=== PATIENT | female | born 1965 | race Caucasian/White ===

== ENCOUNTER 2020-01-23 17:25 | Inpatient (IN) | payer MEDICARE, OTHER ==
[~2020-01-23] VITALS: Ht 162.6 cm; Wt 100.7 kg
[~2020-01-23 17:25] MED LIST: ASPI81TA31 PO; DICL100G16 TP; ERGO400T7 PO; FENO134C PO; FURO-152 PO; GABA-534 PO; LOSA100T31 PO; METF-440 PO; PANT40TA2 PO; POTA-10 PO
--- NOTE | 2020-01-23 17:46 | NUR ---
PT IS IN ROOM #2A. DR MOREAU EVALUATED THE PT.
[2020-01-23] MEDS ORDERED: METO-358 PO (17:58)
[2020-01-23] MEDS ORDERED: WARF1TAB2 PO (17:58)
[2020-01-23] MEDS ORDERED: AMLO-212 PO (17:58)
--- NOTE | 2020-01-23 18:03 | NUR ---
PT RESTING IN BED COMFORTABLY . NO S/S OF ACUTE DISTRESS AT THIS TIME.
[2020-01-23] MEDS ORDERED: GABA800T11 PO (18:26)
[2020-01-23] MEDS ORDERED: SITA100T PO (18:26)
[2020-01-23] MEDS ORDERED: LURA40TA PO (18:26)
[2020-01-23] MEDS ORDERED: GABA-536 PO (18:26)
[2020-01-23] MEDS ORDERED: LOSA100T3 PO (18:26)
[2020-01-23] MEDS ORDERED: BUPR150T10 PO (18:26)
[2020-01-23] MEDS ORDERED: ATOR40TA PO (18:26)
--- NOTE | 2020-01-23 18:55 | NUR ---
REPORT GIVEN TO DOG BOARDER RN.
--- NOTE | 2020-01-23 19:29 | NUR ---
Rigoberto catherine in ED - 01/24/20 at 0714 by MELBA DURING SHIFT CHANGE, PATIENT MANAGED TO ESCAPE OUT OF THE EMERGENCY ROOM AND WAS LAST NOTED WALKING DOWN [facility] TOWARDS [facility], NO 1:1 SITTER NOTED AT TIME OF ESCAPE, IOANA NOTIFIED OF FINDINGS, PATIENT ON 5150 HOLD, UNABLE TO REDIRECT PATIENT TO RETURN BACK TO FACILITY
--- NOTE | 2020-01-23 19:50 | NUR ---
Patient returned to ER department at this time, security at bedside, patient placed in a gown, belongings at nursing station
--- NOTE | 2020-01-23 20:48 | NUR ---
Pt. admitted to [facility] , under care of Dr. Munson and Jordan, patient transferred via wheelchair with warehouse general laborer and security. Belongs List completed and belongings sent, report given
[2020-01-23 21:15] VITALS: BP 152/82
[2020-01-23] MEDS ORDERED: BLOOD SUGAR DIAGNOSTIC 1 EACH STRIP VI ONE (21:30)
[2020-01-23] MEDS ORDERED: MAGNESIUM HYDROXIDE 30 ML LIQUID UDC PO PRN (21:30)
[2020-01-23] MEDS ORDERED: MAG HYDROX/AL HYDROX/SIMETH 30 ML LIQUID UDC PO PRN (21:30)
--- NOTE | 2020-01-23 21:30 | NUR ---
GPS ADMISSION NOTE; Patient is a 54 year old female, brought in to the hospital by ambulance, admitted on a 5150 from [facility]. Patient lives alone. Patient is admitted on a 5150 as DTS. Per hold, patient was found in the living room of her apartment, after claiming to have swallowed 50 pills of Lopressor. Patient stated feeling sad and was planning on taking another 50 pills. Upon face to face evaluation, patient is awake, alert and oriented x4. Mood is calm and cooperative. During interview patient verbalized having attempted " suicide in the past a couple of times ". " I am lonely and my kids wont talk to me ". Patient requested PRN sleeping pill. Orientation of the environment, Advisement and Patients Rights Handbook were provided. VS are stable. Portfolio Specialist noted that patients appearance is unkept and the patient has an extensive medical history including a previous overdose of Risperdal which caused a cardiac arrest. Patient has an AICD. Multiple allergies documented and patient being monitored closely for SI. Frequent rounds done to ensure patients safety.
[2020-01-23] MEDS: TEMAZEPAM 7.5 MG CAPSULE PO PRN (21:56)
[2020-01-24] MEDS: LORAZEPAM 1 MG TABLET PO PRN (04:28)
[2020-01-24 07:30] VITALS: BP 146/90
[2020-01-24 07:37] LABS: BASOPHILS # (AUTO) 0.1 K/uL (0.0-8.0); BASOPHILS % (AUTO) 0.7 % (0.0-2.0); EOSINOPHILS # (AUTO) 0.1 K/uL (0.0-0.7); EOSINOPHILS % (AUTO) 1.2 % (0.0-7.0); HEMATOCRIT 44.1 % (31.2-41.9); LYMPHOCYTES % (AUTO) 37.8 % (20.5-51.5); MEAN CORPUSCULAR HEMOGLOBIN 32.5 uug (24.7-32.8); MEAN CORPUSCULAR HGB CONC 34 g/dL (32.3-35.6); MEAN CORPUSCULAR VOLUME 95.6 fL (75.5-95.3); MONOCYTES # (AUTO) 0.4 K/uL (2.0-10.0); NEUTROPHILS # (AUTO) 4.4 K/uL (1.8-8.9); NEUTROPHILS % (AUTO) 55.3 % (38.5-71.5); PLATELET COUNT (AUTO) 204 K/uL (179-408); RED BLOOD CELL COUNT(AUTO) 4.61 MIL/uL (3.63-4.92)
[2020-01-24 07:58] LABS: BILIRUBIN,TOTAL 0.7 mg/dL (0.2-1.0); POTASSIUM 3.9 mmol/L (3.5-5.1); TOTAL PROTEIN, SERUM 7.8 g/dL (6.4-8.2)
[2020-01-24] MEDS: GABAPENTIN 400 MG CAPSULE PO SCH ×3 (09:02→21:09)
[2020-01-24] MEDS: LOSARTAN POTASSIUM 50 MG TABLET PO SCH (09:02)
[2020-01-24] MEDS: ATORVASTATIN 40 MG TABLET PO SCH (09:02)
[2020-01-24] MEDS: AMLODIPINE 5 MG TABLET PO SCH (09:03)
[2020-01-24] MEDS: METOPROLOL SUCCINATE XL 50 MG TAB.SR.24H PO SCH ×2 (09:03→16:43)
--- NOTE | 2020-01-24 11:14 | NUR ---
ANDRE Initial Discharge Plan: Pt currently lives alone at [address], [place] [address]; ([phone]). Pt would want to return back home upon discharge. Pt is alert and oriented x4, she does not want this comic writer to notify her daughter Nazainn ([phone]) and would want this comic writer to contact sister Dariela ([phone]). This comic writer left a voicemail to sister Dariela to discuss treatment and discharge plan. Pt also has a casework supervisor Hira ([phone]). Pt would want this comic writer to work with casework supervisor. This comic writer contacted pt's casework supervisor and discussed discharge and treatment plan. ANDRE will work with the MD and treatment team to help coordinate discharge plan.
--- NOTE | 2020-01-24 11:15 | NUR ---
SW Family Contact: Pt is alert and oriented x4, she does not want this commercial real estate underwriter to notify her daughter Nazanin ([phone]) and would want this commercial real estate underwriter to contact sister Dariela ([phone]). This commercial real estate underwriter left a voicemail to sister Dariela to discuss treatment and discharge plan.
--- NOTE | 2020-01-24 11:15 | NUR ---
ANDRE Wet Washer Machine: This television script writer left a voicemail to sister Dariela to discuss treatment and discharge plan. Pt also has a rehabilitation caseworker Hira ([phone]). Pt would want this television script writer to work with rehabilitation caseworker. This television script writer contacted pt's rehabilitation caseworker and discussed discharge and treatment plan.
--- NOTE | 2020-01-24 11:19 | NUR ---
Firearms Report DOJ: Route Cdl Driver completed and submitted a [employer] firearms report for 5150 grave disability certification. A copy of report has been placed in patient chart.
--- NOTE | 2020-01-24 15:34 | NUR ---
Individual Intervention: This mortgage underwriter met with pt to discuss pt's presenting problem which was SI. Pt appeared with a flat affect. Pt appeared depressed but was able to engage in a conversation with this mortgage underwriter. This mortgage underwriter conducted brief counseling. Pt stated she was depressed at home but did not elaborate. She stated she does not have a good relationship with her children, however, she has a good relationship with her sister. Pt stated she is excited and looking forward to spending thanksgiving with her sister. This mortgage underwriter actively listened and helped pt express her feelings.
[2020-01-24 16:00] VITALS: BP 138/91
[2020-01-24] MEDS: WARFARIN SODIUM 1 MG TABLET PO SCH (16:50)
[2020-01-24] MEDS: LINAGLIPTIN 5 MG TABLET PO SCH (18:32)
[2020-01-24 20:36] VITALS: BP 136/84
[2020-01-24] MEDS: TRAZODONE 100 MG TABLET PO SCH (21:31)
[2020-01-24] MEDS: LAMOTRIGINE 100 MG TABLET PO SCH (22:00)
--- NOTE | 2020-01-25 02:44 | NUR ---
RECEIVED PATIENT IN BED. DEPRESSED BUT ABLE TO INTERACT.ADMITTED TO SOME SADNESS DUE TO HER 'SITUATION". CALM AND COOPERATIVE WITH HER CARE AND MEDICATIONS. VISUAL CHECKS MADE ON HER FOR SAFETY. WILL CONTINUE TO MONITOR.
[2020-01-25] MEDS: ACETAMINOPHEN 325 MG TABLET PO PRN ×2 (06:42→18:14)
--- NOTE | 2020-01-25 06:44 | NUR ---
SLEPT FOR 6 HOURS. SHE HAS A SHOWER. CALLED SUPERVISORS OFFICE FOR HER LAMOTROGINE. IT WILL BE DELIVERED TODAY.
[2020-01-25 07:30] VITALS: BP 139/84
[2020-01-25] MEDS: GABAPENTIN 400 MG CAPSULE PO SCH ×3 (08:51→20:58)
[2020-01-25] MEDS: ATORVASTATIN 40 MG TABLET PO SCH (08:52)
[2020-01-25] MEDS: AMLODIPINE 5 MG TABLET PO SCH (08:52)
[2020-01-25] MEDS: LOSARTAN POTASSIUM 50 MG TABLET PO SCH (08:53)
[2020-01-25] MEDS: QUETIAPINE FUMARATE 100 MG TABLET PO SCH ×2 (08:57→16:27)
[2020-01-25] MEDS: buPROPion XL 150 MG TAB.SR.24H PO SCH (08:57)
[2020-01-25] MEDS: METOPROLOL SUCCINATE XL 50 MG TAB.SR.24H PO SCH ×2 (08:58→16:28)
--- NOTE | 2020-01-25 14:30 | NUR ---
URINE COLLECTED FROM PATIENT AND SENT TO THE LAB ORDERED
[2020-01-25 14:35] LABS: *BILIRUBIN,URIN NEGATIVE (NEGATIVE); *BLOOD, URINE NEGATIVE (NEGATIVE); *CLARITY,URINE CLEAR (CLEAR); *COLOR,URINE YELLOW (YELLOW); *KETONES,URINE NEGATIVE (NEGATIVE); *UROBILINOGEN,URINE 0.2 E.U./dl (NORMAL); LEUKOCYTE ESTERASE ,URINE 1+ (NEGATIVE); NITRITE, URINE NEGATIVE (NEGATIVE); UGLUCOSE NEGATIVE (NEGATIVE)
[2020-01-25 16:46] VITALS: BP 132/82
[2020-01-25] MEDS: LINAGLIPTIN 5 MG TABLET PO SCH (17:22)
[2020-01-25] MEDS: WARFARIN SODIUM 1 MG TABLET PO SCH (17:33)
--- NOTE | 2020-01-25 17:43 | NUR ---
COUMADIN GIVEN ORDERED AFTER PROTIME CHECKED NO S/S OF BLEEDING AT THIS TIME
[2020-01-25 18:19] LABS: BACTERIA,URINE FEW /HPF (NONE SEEN); RBC,URINE 0-3 /HPF (0-3); SQUAMOUS EPITHELIAL CELL,UR FEW /HPF (NONE SEEN)
[2020-01-25 18:20] LABS: URIC ACID CRYSTALS,URINE FEW /HPF (NONE SEEN)
[2020-01-25 20:13] VITALS: BP 99/60
[2020-01-25] MEDS: LAMOTRIGINE 100 MG TABLET PO SCH (20:58)
[2020-01-25] MEDS: TRAZODONE 100 MG TABLET PO SCH (20:58)
--- NOTE | 2020-01-25 21:51 | NUR ---
Awake upon initial rounds. AAOx4 Depressed. Cooperative. Compliant with meds. VSS. No acute distress noted. Will monitor patient. OOB to the BR Voiding well. Needs attended. No signs of agitation or restlessness noted. Kept comfortable.
--- NOTE | 2020-01-26 06:34 | NUR ---
Quiet night. Slept 8.15 hours this shift. No distress noted. Depressed. No complaints presented during shift. Will monitor patient. Voiding well.
[2020-01-26 07:30] VITALS: BP 135/79
[2020-01-26] MEDS: AMLODIPINE 5 MG TABLET PO SCH (08:14)
[2020-01-26] MEDS: LOSARTAN POTASSIUM 50 MG TABLET PO SCH (08:14)
[2020-01-26] MEDS: QUETIAPINE FUMARATE 100 MG TABLET PO SCH ×2 (08:14→16:05)
[2020-01-26] MEDS: METOPROLOL SUCCINATE XL 50 MG TAB.SR.24H PO SCH ×2 (08:14→16:06)
[2020-01-26] MEDS: ATORVASTATIN 40 MG TABLET PO SCH (08:14)
[2020-01-26] MEDS: GABAPENTIN 400 MG CAPSULE PO SCH ×3 (08:14→20:40)
[2020-01-26] MEDS: buPROPion XL 150 MG TAB.SR.24H PO SCH (08:15)
[2020-01-26 16:00] VITALS: BP 116/74
[2020-01-26] MEDS: CEphaleXIN 500 MG CAPSULE PO SCH (16:05)
[2020-01-26] MEDS: WARFARIN SODIUM 1 MG TABLET PO SCH (16:08)
[2020-01-26] MEDS: LINAGLIPTIN 5 MG TABLET PO SCH (17:00)
--- NOTE | 2020-01-26 17:36 | NUR ---
Received patient in the Dining room, patient able to ambulate by her self, patient concern with her 5250 hold , patient expresses her wanting to be heard from the court referee when they conduct the hold hearing, educated patient , that she can participate and its her right, we will wait for the court schedule and will let her know about the hearing, patient been isolative, denies SI, and HI, seen participating with the group activities, watching TV, had good appetite, able to answer questions, nurse practitioner of called and asking regarding the patient following up regarding the medication, ENROLLMENT SPECIALIST informed that the Psychiatrist ( Dr. Munson) is fully incharge with care of the in the hospital and he already spoke with , will notify MD regarding the ENROLLMENT SPECIALIST concern , will continue follow up
[2020-01-26 20:12] VITALS: BP 110/56
[2020-01-26] MEDS: LAMOTRIGINE 100 MG TABLET PO SCH (20:39)
[2020-01-26] MEDS: TRAZODONE 100 MG TABLET PO SCH (20:40)
[2020-01-26] MEDS: TEMAZEPAM 7.5 MG CAPSULE PO PRN (23:51)
[2020-01-26] MEDS: ACETAMINOPHEN 325 MG TABLET PO PRN (23:51)
[2020-01-27 07:30] VITALS: BP 120/71
[2020-01-27] MEDS: CEphaleXIN 500 MG CAPSULE PO SCH ×2 (08:07→16:18)
[2020-01-27] MEDS: GABAPENTIN 400 MG CAPSULE PO SCH ×3 (08:08→20:28)
[2020-01-27] MEDS: ATORVASTATIN 40 MG TABLET PO SCH (08:08)
[2020-01-27] MEDS: QUETIAPINE FUMARATE 100 MG TABLET PO SCH ×2 (08:08→16:18)
[2020-01-27] MEDS: LOSARTAN POTASSIUM 50 MG TABLET PO SCH (08:09)
[2020-01-27] MEDS: buPROPion XL 150 MG TAB.SR.24H PO SCH (08:10)
[2020-01-27] MEDS: AMLODIPINE 5 MG TABLET PO SCH (09:00)
[2020-01-27] MEDS: METOPROLOL SUCCINATE XL 50 MG TAB.SR.24H PO SCH ×2 (09:00→16:19)
--- NOTE | 2020-01-27 11:26 | NUR ---
Individual Intervention: This engineering technical writer met with pt for brief therapy. Pt appeared tearful while this engineering technical writer was conducting therapy. Pt was fixated on discharge and wanted to leave. Pt stated she has "a lot of stressors at home and needs to leave". This engineering technical writer discussed her severity of why pt was admitted to the hospital and helped pt realize the benefits of continuing her treatment. Pt was minimizing her symptoms while this engineering technical writer was conducting therapy. However, throughout session, pt mentioned "you guys want to keep me here and my daughter doesn't let me see my grandchildren". Pt appeared agitated and distressed. This engineering technical writer assessed for SI, pt denied. This engineering technical writer was able to calm pt down and actively listened. This engineering technical writer notified Dr. Munson.
--- NOTE | 2020-01-27 13:08 | NUR ---
Coordination of Care: Patient will follow up with (Set Up Worker) Dr. Chatterjee on February 09 at 2:45PM located at [address] [place] [address]; ([phone]). This sports book writer had contacted pt's primary doctors office and spoke with Michelle who arranged apt. Patient will follow-up (psychiatrist) Dr. Smith on January 25 at 4PM located at [address] [place] [address], [facility]; ([phone]) on January 31 4PM. This sports book writer contacted pts psychiatrists office and spoke with Ellie who arranged apt.
[2020-01-27 16:22] VITALS: BP 123/69
[2020-01-27] MEDS: WARFARIN SODIUM 2 MG TABLET PO SCH (16:23)
[2020-01-27] MEDS: LINAGLIPTIN 5 MG TABLET PO SCH (17:04)
--- NOTE | 2020-01-27 18:12 | NUR ---
received patient AOx3, patient having flat affect, easily irritable, patient still concern on her 5250 hold, patient denies SI and Hi, seen participating with group, patient been compliant with medication, patient no sign of distress at this time, monitor Q 15minutes for safety, seen by Dr. Munson, [facility], will continue monitor
[2020-01-27 20:28] VITALS: BP 93/49
[2020-01-27] MEDS: LAMOTRIGINE 100 MG TABLET PO SCH (20:28)
[2020-01-27] MEDS: TRAZODONE 50 MG TABLET PO SCH (20:32)
[2020-01-28 07:30] VITALS: BP 133/85
[2020-01-28] MEDS: buPROPion XL 150 MG TAB.SR.24H PO SCH (08:18)
[2020-01-28] MEDS: GABAPENTIN 400 MG CAPSULE PO SCH ×3 (08:18→20:13)
[2020-01-28] MEDS: LOSARTAN POTASSIUM 50 MG TABLET PO SCH (08:19)
[2020-01-28] MEDS: CEphaleXIN 500 MG CAPSULE PO SCH ×2 (08:19→16:21)
[2020-01-28] MEDS: AMLODIPINE 5 MG TABLET PO SCH (08:19)
[2020-01-28] MEDS: QUETIAPINE FUMARATE 100 MG TABLET PO SCH ×2 (08:20→16:21)
[2020-01-28] MEDS: ATORVASTATIN 40 MG TABLET PO SCH (08:20)
[2020-01-28] MEDS: METOPROLOL SUCCINATE XL 50 MG TAB.SR.24H PO SCH ×2 (08:20→16:22)
--- NOTE | 2020-01-28 10:29 | NUR ---
ANDRE Fringing Machine Operator Contact: This keno writer received a phone call from pt's watch caser Hira ([phone]) who stated she is relieved that patient will remain in the hospital for a few more days for further stabilization.
--- NOTE | 2020-01-28 12:30 | NUR ---
ANDRE PC Hearing: Patient had probable cause hearing today and it was upheld for danger to self and grave disability.
[2020-01-28 16:00] VITALS: BP 130/75
[2020-01-28] MEDS: WARFARIN SODIUM 2 MG TABLET PO SCH (16:24)
[2020-01-28] MEDS ORDERED: CEphaleXIN 500 MG CAPSULE PO SCH (17:00)
[2020-01-28] MEDS: LINAGLIPTIN 5 MG TABLET PO SCH (17:06)
[2020-01-28 19:53] VITALS: BP 105/67
[2020-01-28] MEDS: TRAZODONE 50 MG TABLET PO SCH (20:13)
[2020-01-28] MEDS: LAMOTRIGINE 100 MG TABLET PO SCH (20:15)
[2020-01-29] MEDS: ACETAMINOPHEN 325 MG TABLET PO PRN ×2 (02:31→23:08)
[2020-01-29] MEDS: LORAZEPAM 1 MG TABLET PO PRN (02:32)
[2020-01-29 07:30] VITALS: BP 127/74
[2020-01-29] MEDS: LOSARTAN POTASSIUM 50 MG TABLET PO SCH (08:08)
[2020-01-29] MEDS: CEphaleXIN 500 MG CAPSULE PO SCH ×2 (08:08→17:27)
[2020-01-29] MEDS: QUETIAPINE FUMARATE 100 MG TABLET PO SCH ×2 (08:09→17:27)
[2020-01-29] MEDS: AMLODIPINE 5 MG TABLET PO SCH (08:09)
[2020-01-29] MEDS: GABAPENTIN 400 MG CAPSULE PO SCH ×3 (08:09→20:26)
[2020-01-29] MEDS: METOPROLOL SUCCINATE XL 50 MG TAB.SR.24H PO SCH ×2 (08:09→17:28)
[2020-01-29] MEDS: ATORVASTATIN 40 MG TABLET PO SCH (08:09)
[2020-01-29] MEDS: buPROPion XL 150 MG TAB.SR.24H PO SCH (08:10)
--- NOTE | 2020-01-29 09:59 | NUR ---
patient is calm, cooperative, and redirectable. she has appropriate interaction with staff and others. patient denies SI/HI, denies AH/Vh. she is adherent with prescribed medication, no adverse reaction noted. patient is able to independently ambulate and perform self care and ADl's. patient participate in unit milieu and therapeutic activities.
[2020-01-29 15:34] VITALS: BP 118/73
[2020-01-29] MEDS: LINAGLIPTIN 5 MG TABLET PO SCH (17:27)
[2020-01-29] MEDS: WARFARIN SODIUM 2 MG TABLET PO SCH (17:27)
[2020-01-29 19:59] VITALS: BP 108/50
[2020-01-29] MEDS: TRAZODONE 50 MG TABLET PO SCH (20:23)
[2020-01-29] MEDS: LAMOTRIGINE 100 MG TABLET PO SCH (20:26)
[2020-01-30] MEDS: LORAZEPAM 1 MG TABLET PO PRN (01:47)
--- NOTE | 2020-01-30 02:02 | NUR ---
RECEIVED PATIENT IN ACTIVITY ROOM. INTERACTED APPROPRIATELY. CALM AND COOPERATIVE WITH HER CARE AND MEDICATIONS. VISUAL CHECKS MADE ON HER FOR SAFETY. WILL CONTINUE TO MONITOR.
--- NOTE | 2020-01-30 06:49 | NUR ---
SHE SLEPT FOR 9:00 HOURS
[2020-01-30 07:30] VITALS: BP 110/70
[2020-01-30] MEDS: ATORVASTATIN 40 MG TABLET PO SCH (08:23)
[2020-01-30] MEDS: QUETIAPINE FUMARATE 100 MG TABLET PO SCH ×2 (08:23→16:36)
[2020-01-30] MEDS: CEphaleXIN 500 MG CAPSULE PO SCH ×2 (08:23→16:36)
[2020-01-30] MEDS: buPROPion XL 150 MG TAB.SR.24H PO SCH (08:23)
[2020-01-30] MEDS: GABAPENTIN 400 MG CAPSULE PO SCH ×3 (08:23→20:26)
[2020-01-30] MEDS: METOPROLOL SUCCINATE XL 50 MG TAB.SR.24H PO SCH ×2 (08:24→16:36)
[2020-01-30] MEDS: LOSARTAN POTASSIUM 50 MG TABLET PO SCH (08:24)
[2020-01-30] MEDS: AMLODIPINE 5 MG TABLET PO SCH (08:25)
[2020-01-30] MEDS: ACETAMINOPHEN 325 MG TABLET PO PRN ×2 (12:29→18:46)
--- NOTE | 2020-01-30 12:30 | NUR ---
PATIENT STATED HAS HEADACHE FEELS VERY TIRED BUT HAS BEEN UNABLE TO SLEEP TYLENOL GIVEN ORDERED ENCOURAGED HER TO LAY DOWN AND REST FOR A WHILE AND SHE EXPRESSED UNDERSTANDING
[2020-01-30 16:00] VITALS: BP 127/69
[2020-01-30] MEDS: WARFARIN SODIUM 2 MG TABLET PO SCH (16:38)
[2020-01-30] MEDS: LINAGLIPTIN 5 MG TABLET PO SCH (17:01)
--- NOTE | 2020-01-30 17:30 | NUR ---
REMAIN ON COUMADIN ORDERED WITH NO ADVERSE EFFECT NO BLEEDING EPISODE COMPLIANT WITH HER MEDICATIONS AND CARE WILL CONTINUE TO PROVIDE SAFE AND THERAPEUTIC ENVIRONMENT AT ALL TIMES
[2020-01-30 20:25] VITALS: BP 101/68
[2020-01-30] MEDS: TRAZODONE 50 MG TABLET PO SCH (20:26)
[2020-01-30] MEDS: LAMOTRIGINE 100 MG TABLET PO SCH (20:26)
[2020-01-31] MEDS: TEMAZEPAM 7.5 MG CAPSULE PO PRN ×2 (00:30→22:21)
--- NOTE | 2020-01-31 05:52 | NUR ---
Patient was up and down during the night. Patient slept 5.30 hours and spent some time in the day room reading. Monitoring patients needs. Patient denies SI at this time, frequent rounding done to ensure a safe environment.
[2020-01-31 07:30] VITALS: BP 120/73
[2020-01-31] MEDS: CEphaleXIN 500 MG CAPSULE PO SCH (08:07)
[2020-01-31] MEDS: AMLODIPINE 5 MG TABLET PO SCH (08:07)
[2020-01-31] MEDS: METOPROLOL SUCCINATE XL 50 MG TAB.SR.24H PO SCH ×2 (08:08→16:42)
[2020-01-31] MEDS: ATORVASTATIN 40 MG TABLET PO SCH (08:08)
[2020-01-31] MEDS: GABAPENTIN 400 MG CAPSULE PO SCH ×3 (08:08→20:29)
[2020-01-31] MEDS: LOSARTAN POTASSIUM 50 MG TABLET PO SCH (08:08)
[2020-01-31] MEDS: QUETIAPINE FUMARATE 100 MG TABLET PO SCH ×2 (08:08→16:43)
[2020-01-31] MEDS: buPROPion XL 150 MG TAB.SR.24H PO SCH (08:10)
--- NOTE | 2020-01-31 08:56 | NUR ---
patient sitting quietly in dining room coloring and watching television. patient is calm, cooperative, and redirectable. patient has appropriate interaction with others but is guarded. patient denies SI/HI, denies AH/VH. patient is adherent with medication, no adverse reaction noted. patient is able to ambulate independently and is motivated to perform self care and ADL's.
--- NOTE | 2020-01-31 15:13 | NUR ---
ANDRE Environmental Scientists Contact: This law writer received a phone call from pt's telehealth case manager Hira ([phone]) who stated if this law writer can ask pt if she is interested in the [facility] program. This law writer spoke with patient and patient stated she is not interested in the program.
[2020-01-31 15:39] VITALS: BP 125/75
[2020-01-31] MEDS: WARFARIN SODIUM 2 MG TABLET PO SCH (16:45)
[2020-01-31] MEDS: ACETAMINOPHEN 325 MG TABLET PO PRN (16:49)
[2020-01-31] MEDS: LINAGLIPTIN 5 MG TABLET PO SCH (18:00)
[2020-01-31] MEDS: TRAZODONE 50 MG TABLET PO SCH (20:29)
[2020-01-31] MEDS: LAMOTRIGINE 100 MG TABLET PO SCH (20:29)
[2020-01-31 20:30] VITALS: BP 118/72
--- NOTE | 2020-02-01 02:05 | NUR ---
PATIENT IS CALM AND COOPERATIVE.MOOD IS LOW BUT COMPLIANT WITH MEDICATION.DENIES SI/HI.WILL CONTINUE TO MONITOR.
--- NOTE | 2020-02-01 06:56 | NUR ---
SLEPT FOR 7:30 HOURS. HAS HAD A SHOWER.
[2020-02-01 07:53] VITALS: BP 121/84
[2020-02-01] MEDS: buPROPion XL 150 MG TAB.SR.24H PO SCH (08:10)
[2020-02-01] MEDS: AMLODIPINE 5 MG TABLET PO SCH (08:10)
[2020-02-01] MEDS: LOSARTAN POTASSIUM 50 MG TABLET PO SCH (08:11)
[2020-02-01] MEDS: METOPROLOL SUCCINATE XL 50 MG TAB.SR.24H PO SCH ×2 (08:11→16:25)
[2020-02-01] MEDS: GABAPENTIN 400 MG CAPSULE PO SCH ×3 (08:12→20:39)
[2020-02-01] MEDS: ATORVASTATIN 40 MG TABLET PO SCH (08:12)
[2020-02-01] MEDS: QUETIAPINE FUMARATE 100 MG TABLET PO SCH ×2 (08:12→16:25)
[2020-02-01] MEDS: ACETAMINOPHEN 325 MG TABLET PO PRN ×2 (08:14→20:39)
--- NOTE | 2020-02-01 08:56 | NUR ---
ANDRE Information Officer Contact: This typewriter assembler received a phone call from pt's special education case manager Hira ([phone]) who stated pt is interested in the [facility]PER[facility] Program in [place].
--- NOTE | 2020-02-01 08:56 | NUR ---
ANDRE Coordination of Care: This development writer contacted [facility]OMETRY PROFESSOR Program in [place] ([phone]) (P: [phone]) and spoke with Admin Sharlene who stated they currently have a wait list. She will review pt's clinicals. This development writer sent H & P, medications, and laboratory for review.
--- NOTE | 2020-02-01 15:41 | NUR ---
Individual Intervention: This functional tester typewriters met with pt for brief therapy to address patient's presenting problem SI, denies SI. Patient presented with euthymic mood. Patient was able to share with this functional tester typewriters that she has family problems with her ex- and daughter. She was able to minimally share about her divorce. This functional tester typewriters actively listened and provided comfort.
--- NOTE | 2020-02-01 15:57 | NUR ---
ANDRE Coordination of Care Contact: This marine underwriter contacted BRAND PLANNER Program in [place] ([phone]) (P: [phone]) Admin Sharlene and wanted to follow-up on if she reviewed patient's packet. However, she was unavailable and this marine underwriter left a voicemail.
[2020-02-01] MEDS: LINAGLIPTIN 5 MG TABLET PO SCH (16:25)
[2020-02-01] MEDS: WARFARIN SODIUM 2 MG TABLET PO SCH (16:27)
[2020-02-01 16:52] VITALS: BP 102/56
[2020-02-01] MEDS: LORAZEPAM 1 MG TABLET PO PRN (17:58)
--- NOTE | 2020-02-01 18:43 | NUR ---
RECEIVED PATIENT IS AWAKE ALERT AND ORIENTED COMPLIANT WITH MEDICATIONS AND CARE UP AND ABOUT IN THE TV ROOM WITH THE OTHER PATIENTS WILL CONTINUE To PROVIDE SAFE AND THERAPEUTIC ENVIRONMENT AT ALL TIMES
[2020-02-01 20:16] VITALS: BP 112/62
[2020-02-01] MEDS: TRAZODONE 50 MG TABLET PO SCH (20:38)
[2020-02-01] MEDS: LAMOTRIGINE 100 MG TABLET PO SCH (20:40)
--- NOTE | 2020-02-01 21:00 | NUR ---
PATIENT APPROACHED THE NURSING STATION AND STATED TO THIS DRAPERY INSPECTOR, "I WANT TO SEE MY PSYCHIATRIST RIGHT NOW". PATIENT WAS EDUCATED ON PSYCHIATRIST VISITS. SHE WAS ENCOURAGE TO VERBALIZED FEELINGS WITH THIS DRAPERY INSPECTOR. SHE STATED, "I AM FEELING SAD BECAUSE MY CHILDREN DON'T WANT TO TALK TO ME. I CALL AND I CALL THEM BUT THEY DON'T CALL BACK". PATIENT WAS REASSURED AND REDIRECTED. SHE STATED THAT SHE IS FEELINGS SAD AND HAVING SOME SI WITHOUT ANY PLAN TO COMMIT SUICIDED. PATIENT IS NAYE TO VERBALLY CONTRACT FOR SAFETY WITH THIS DRAPERY INSPECTOR. WE WILL CONTINUE Q15 MIN CHECKS AND ENCOURAGE TO CONTINUE EXPRESSING HER FEELINGS.
[2020-02-02] MEDS: LORAZEPAM 1 MG TABLET PO PRN (01:26)
[2020-02-02 07:30] VITALS: BP 128/73
--- NOTE | 2020-02-02 07:41 | NUR ---
RECEIVED PATIENT IRRITABLE, ANXIOUS, SEEM UPSET, PATIENT VERBALIZES THAT SHE WAS NOT HAPPY, PATIENT VERBALIZES THAT SHE HAS SUICIDAL THOUGHTS LAST NIGHT AND WANTED TO END HER LIFE, MD IS AWARE, PATIENT WAS MONITORED [id number] FOR SAFETY, NO SIGN OF DISTRESS AT THIS TIME
[2020-02-02] MEDS: GABAPENTIN 400 MG CAPSULE PO SCH ×3 (08:19→21:17)
[2020-02-02] MEDS: QUETIAPINE FUMARATE 100 MG TABLET PO SCH ×2 (08:19→16:08)
[2020-02-02] MEDS: ATORVASTATIN 40 MG TABLET PO SCH (08:20)
[2020-02-02] MEDS: AMLODIPINE 5 MG TABLET PO SCH (08:20)
[2020-02-02] MEDS: LOSARTAN POTASSIUM 50 MG TABLET PO SCH (08:21)
[2020-02-02] MEDS: METOPROLOL SUCCINATE XL 50 MG TAB.SR.24H PO SCH ×2 (08:21→16:07)
[2020-02-02] MEDS: buPROPion XL 150 MG TAB.SR.24H PO SCH (08:22)
[2020-02-02 16:05] VITALS: BP 113/70
[2020-02-02] MEDS: WARFARIN SODIUM 2 MG TABLET PO SCH (16:09)
[2020-02-02] MEDS: LINAGLIPTIN 5 MG TABLET PO SCH (17:00)
--- NOTE | 2020-02-02 17:43 | NUR ---
PATIENT APPEARS TO BE HAVING FLAT AFFECT, ISOLATIVE , EASILY IRRITABLE , TODAY SHE WAS SEEN PARTICIPATING WITH GROUP AND ASKED HELP FOR HER ROOMMATE, PATIENT DENIES SI AT THIS TIME, WILL CONTINUE MONITOR
--- NOTE | 2020-02-02 21:00 | NUR ---
RECEIVED PATIENT IN HER ROOM IN BED ASLEEP BUT EASILY AROUSABLE. PATIENT NOTED WITH DEPRESSED MOOD, BLUNTED AFFECT. HE STATED THAT HE FEELS SAD AND DEPRESSED D/T HER SITUATION WITH HER KIDS THAT THEY ARE NOT IN HER LIFE. HOWEVER, PATIENT DENIES SI OR ANY PLAN TO COMMIT SUICIDAL OR HER HERSELF. PATIENT WAS ALSO SEEN BY DR CASTRO. MEDICATION WAS ADJUSTED. PATIENT IS ABLE TO VERBALIZED FEELINGS. SHE IS REASSURED FOR HER SAFETY. V/S STABLE. SAFETY AND FALL PRECAUTION IN PLACE. WILL CONTINUE TO MONITOR.
[2020-02-02] MEDS: TRAZODONE 50 MG TABLET PO SCH (21:16)
[2020-02-02] MEDS: LAMOTRIGINE 100 MG TABLET PO SCH (21:17)
[2020-02-02] MEDS: QUETIAPINE FUMARATE 25 MG TABLET PO SCH (21:17)
[2020-02-02] MEDS: TEMAZEPAM 7.5 MG CAPSULE PO PRN (23:34)
[2020-02-03] MEDS: LORAZEPAM 1 MG TABLET PO PRN (03:38)
[2020-02-03] MEDS: ACETAMINOPHEN 325 MG TABLET PO PRN (05:39)
[2020-02-03 07:30] VITALS: BP 105/51
--- NOTE | 2020-02-03 07:34 | NUR ---
Received AOx2-3, labile , easily irritable, patient seeks attention to staff, patient verbalizes that shes not treated well, patient assisted with her ADL and need attended, patient denies SI at this time
[2020-02-03] MEDS: ATORVASTATIN 40 MG TABLET PO SCH (08:34)
[2020-02-03] MEDS: GABAPENTIN 400 MG CAPSULE PO SCH ×3 (08:34→20:27)
[2020-02-03] MEDS: METOPROLOL SUCCINATE XL 50 MG TAB.SR.24H PO SCH ×2 (08:35→16:19)
[2020-02-03] MEDS: LOSARTAN POTASSIUM 50 MG TABLET PO SCH (08:35)
[2020-02-03] MEDS: QUETIAPINE FUMARATE 100 MG TABLET PO SCH (08:35)
[2020-02-03] MEDS: AMLODIPINE 5 MG TABLET PO SCH (08:36)
[2020-02-03] MEDS: buPROPion XL 150 MG TAB.SR.24H PO SCH (08:39)
[2020-02-03] MEDS: LAMOTRIGINE 25 MG TABLET PO SCH (08:39)
--- NOTE | 2020-02-03 09:29 | NUR ---
SW Coordination of Care Contact: This health technical writer contacted NUTRITION MANAGER Program in [place] ([phone]) (P: [phone]) Admin Sharlene who stated that they have a wait list up to 4 weeks. This health technical writer will pass on the message to pt.
--- NOTE | 2020-02-03 09:35 | NUR ---
ANDRE Discharge Planning: This telegraphic typewriter operator chief spoke with pt and stated [facility]ER TRIMMER Program has a wait list for about 4 weeks. Pt did not agree and wants to go home. Pt stated she wants to continue to work with her psychiatrist and her business case analyst at home.
--- NOTE | 2020-02-03 09:36 | NUR ---
ANDRE Moto Mix Operator Contact: This promotion writer received a phone call from pt's child welfare caseworker Hira ([phone]) and shared information in regard to [facility]K AUXILIARY Program in [place]. This promotion writer stated program has a wait list and pt does not want to wait.
--- NOTE | 2020-02-03 09:37 | NUR ---
Individual Intervention: This song writer met with pt for brief therapy to address patient's presenting problem SI, denies SI. Patient presented with low mood and was withdrawn. However, she did stated that she has loves interacting and coloring here at the hospital. This song writer actively listened and provided support.
--- NOTE | 2020-02-03 11:10 | NUR ---
SW Coordination of Care Contact: This senior writer contacted SUPERVISOR DRYING AND SOFTENING Program in [place] ([phone]) (P: [phone]) Admin Sharlene who stated will interview pt after lunch and will give this senior writer an answer.
--- NOTE | 2020-02-03 13:53 | NUR ---
ANDRE Family Contact: This technical publications writer contacted patients sister Dariela ([phone]) and left a detailed voicemail that patient will be discharged.
--- NOTE | 2020-02-03 13:54 | NUR ---
SW Coordination of Care Contact: This life insurance underwriter contacted [facility] Program in [place] ([phone]) (P: [phone]) Admin Sharlene who stated they will accept pt 02/03.
[2020-02-03 16:00] VITALS: BP 120/66
[2020-02-03] MEDS: LINAGLIPTIN 5 MG TABLET PO SCH (17:00)
[2020-02-03] MEDS ORDERED: WARFARIN SODIUM 2 MG TABLET PO SCH (17:00)
--- NOTE | 2020-02-03 17:45 | NUR ---
patient been calm cooperative, denies SI and Hi, patient had covid test and chest xray done for the DC planning for tomorrow, patient in good mood, no sign of distress, assisted with ADL, needs attended, monitored Q15 minutes for safety
[2020-02-03 19:45] VITALS: BP 102/68
[2020-02-03] MEDS: TRAZODONE 50 MG TABLET PO SCH (20:26)
[2020-02-03] MEDS: QUETIAPINE FUMARATE 25 MG TABLET PO SCH (20:27)
[2020-02-03] MEDS: LAMOTRIGINE 100 MG TABLET PO SCH (20:27)
[2020-02-03] MEDS: TEMAZEPAM 7.5 MG CAPSULE PO PRN (22:27)
[2020-02-04 07:30] VITALS: BP 141/82
--- NOTE | 2020-02-04 08:03 | NUR ---
SW Discharge Note: Patient will be discharged to [facility] facility to [facility] [address], [address]; ([phone]). This television writer spoke with [facility] ([phone]) who stated they will accept pt. Patients case aide Ed ([phone]) is aware of patients discharge. This television writer contacted patients sister Dariela ([phone]) and left a detailed voicemail that patient will be discharged. Patient is alert and oriented x4, and is not able to plan for self-care at this time, but is willing to accept care provided for her at the facility. Patient denies any suicidal or homicidal ideation. Patient is aware and agreeable with discharge plans. Patient will follow-up with her (Psychiatrist) Dr. Patricia at the program and if pt will need a primary doctor they will admit pt at the ER. Patient will continue to follow-up with her (Psychiatrist) Dr. Almeida and (Early Childhood Director) Dr. Morales. Patient was provided with outpatient mental health resources to [facility] Crisis Line , and the National Suicide Prevention Lifeline . Patient presented with euthymic and congruent affect. Addendum: 02/04/20 at 0946 by ANDRE GUERRA Patient will be discharged to [facility] [address] [facility] [place], [address]; ([phone]). This television writer spoke with Sharlene [facility] ([phone]) who stated they will accept pt. Patients case aide Ed ([phone]) is aware of patients discharge. This television writer contacted patients sister Dariela ([phone]) and left a detailed voicemail that patient will be discharged. Patient is alert and oriented x4, and is not able to plan for self-care at this time, but is willing to accept care provided for her at the facility. Patient denies any suicidal or homicidal ideation. Patient is aware and agreeable with discharge plans. Patient will follow-up with her (Psychiatrist) Dr. Patricia at the program and if pt will need a primary doctor they will admit pt at the ER. Patient will continue to follow-up with her (Psychiatrist) Dr. Almeida and (Early Childhood Director) Dr. Morales. Patient was provided with outpatient mental health resources to [facility] Crisis Line , and the National Suicide Prevention Lifeline . Patient presented with euthymic and congruent affect.
[2020-02-04] MEDS: QUETIAPINE FUMARATE 100 MG TABLET PO SCH (08:52)
[2020-02-04] MEDS: GABAPENTIN 400 MG CAPSULE PO SCH (08:52)
[2020-02-04] MEDS: ATORVASTATIN 40 MG TABLET PO SCH (08:52)
[2020-02-04] MEDS: LOSARTAN POTASSIUM 50 MG TABLET PO SCH (08:52)
[2020-02-04] MEDS: AMLODIPINE 5 MG TABLET PO SCH (08:53)
[2020-02-04] MEDS: buPROPion XL 150 MG TAB.SR.24H PO SCH (08:53)
[2020-02-04] MEDS: LAMOTRIGINE 25 MG TABLET PO SCH (08:54)
[2020-02-04 08:56] VITALS: BP 141/82
[2020-02-04] MEDS: METOPROLOL SUCCINATE XL 50 MG TAB.SR.24H PO SCH (08:56)
--- NOTE | 2020-02-04 11:16 | NUR ---
DISCHARGED NOTE: PATIENT WAS INITIALLY ADMITTIED TO [facility] FOR 5150 HOLD FOR DTS/DTO/GD REPORTEDLY STATES THAT PATIENTS WAS FOUND OD WITH MEDICATION PATIENT WAS PLACED ON EVERY 15 MINUTES SAFETY CHECK AND WAS SEEN BY PSYCHIATRIST AND MEDICAL DOCTOR . PATIENT RECEIVED PSYCHO THERAPY, MILIEU THERAPY AND PSYCHOTROPIC MEDICATIONS. SHE HAS BEEN COMPLIANT WITH MEDICATION REGIMEN AND SHOWN IMPROVEMENT IN MOOD THOUGHTS AND BEHAVIOR ON ASSESSMENT PATIENT WAS RECEIVED IN HER ROOM ORIENTED X4, NO SIGN OF DISTRESS, PATIENT PRESENTED APPROPRIATE , WELL GROOMED AND PLEASANT TO TALK TO. PATIENT HAD A CALM MOOD, SOFT SPEECH AND MAINTAINED EYE CONTACT . PATIENT WAS CALM COOPERATIVE AND RESPONDED APPROPRIATELY TO QUESTION, PATIENT DENIES SI AND HI, AH AND VH , EXPRESSED FEELINGS WITH SOME OPTIMISM AND HOPE , THE PSYCHIATRIST WAS MADE AWARE OF THE PATIENT CONDITION AND GAVE DISCHARGED INSTRUCTIONS. PATIENTS BELONGING AND VALUABLES WERE RETURNED , PATIENT SIGNED AND ACKNOWLEDGE RECEIPT. GAVE HOME MEDICATION PRESCRIPTIONS AND DISCHARGED INSTRUCTION, PATIENT WAS WALKED OUT OF THE UNIT IN STABLE CONDITION AT 1130AM PATIENT WAS ASSISTED TO THE LOB FOR THE TRANSPORTATION
== END 2020-02-04 11:24 | DRG 885 ==
LOC: ER 17:25 → GPS 20:51
PROVIDERS: ADMIT Psychiatry & Neurology Psychiatry; ATTEND Nurse Practitioner Acute Care
DX: F31.5 Bipolar disorder, current episode depressed, severe, with psychotic features (principal); E11.65 Type 2 diabetes mellitus with hyperglycemia; R45.851 Suicidal ideations; N39.0 Urinary tract infection, site not specified; I48.0 Paroxysmal atrial fibrillation; Z95.810 Presence of automatic (implantable) cardiac defibrillator; Z79.84 Long term (current) use of oral hypoglycemic drugs; Z79.82 Long term (current) use of aspirin; E11.40 Type 2 diabetes mellitus with diabetic neuropathy, unspecified; K21.9 Gastro-esophageal reflux disease without esophagitis; Z79.899 Other long term (current) drug therapy; Z91.5 Personal history of self-harm; Z86.73 Personal history of transient ischemic attack (TIA), and cerebral infarction without residual deficits; Z79.01 Long term (current) use of anticoagulants; Z86.74 Personal history of sudden cardiac arrest; R79.1 Abnormal coagulation profile; I10 Essential (primary) hypertension; T44.7X2D Poisoning by beta-adrenoreceptor antagonists, intentional self-harm, subsequent encounter
CPT/HCPCS: 36415; 71045; 85025; 85610; 87086; 93005; A4663